=== PATIENT | male | born 1965 | race Caucasian/White ===

== ENCOUNTER 2022-11-16 19:24 | Inpatient (IN) | payer SELFPAY ==
[~2022-11-16] VITALS: Ht 182.9 cm; Wt 112.4 kg
[~2022-11-16 19:24] MED LIST: CIALIS5 MG PO; GLIPIZIDE XL10 MG PO; METFORMIN HCL500 MG PO; ZANTAC300 MG PO
--- NOTE | 2022-11-17 00:14 | EKG ---
[facility] [address] [facility] [place] [address] Signed Sinus tachycardia Incomplete right bundle branch block ST \T\ T wave abnormality, consider inferior ischemia Abnormal ECG No previous ECGs available Confirmed by NILSA COUGHLIN MD ([id number]) on 11/17/2022 12:13:56 AM Electronically Signed By: NILSA COUGHLIN MD 11/17/22 0014 PATIENT NAME: EVERETT CASTILLO Electrocardiogram DATE OF : 67 PHYSICIAN: NILSA COUGHLIN MD REPORT #: [id number] REPORT IS CONFIDENTIAL AND NOT TO BE RELEASED WITHOUT AUTHORIZATION
--- NOTE | 2022-11-17 03:07 | NUR ---
11/17/22 0307 Priti Molina 0302 PATIENT ARRIVES TO CCU AWAKE BUT CONFUSED. DOES NOT REDIRECT TO SITUATION. TRYING TO PULL NG OUT OF NOSE. RESP EVEN AND UNLABORED, ROOM AIR SATRS >91%.
--- NOTE | 2022-11-17 04:05 | NUR ---
REPORT FROM VENDING MACHINE OPERATOR ASHWINI AT THIS TIME. PT CONTINUES TO BE TACHYCARDIA AT 120-130/MIN, HTN, AWARE. PT MOANING AND YELLING FOR PAIN MEDCIATIONS, ASHWINI VENDING MACHINE OPERATOR HAS ADMINISTERED FENTANYL, SANDRA RN INTO ADMINISTER DILAUDID.
--- NOTE | 2022-11-17 05:26 | NUR ---
PT SLEEPING INTERMITTEN, OCCASSIONALLY WAKES AND MOANS/YELLS OUT THEN BACK TO SLEEP.
--- NOTE | 2022-11-17 05:40 | NUR ---
CALLED FOR CONTINUED TACHYCARDIA, 130-140/MIN. NEW ORDER FOR LOPRESSOR 2.5MG IV PRN Q6 HOURS.
--- NOTE | 2022-11-17 07:30 | NUR ---
PT HAD PULLED ON HIS NG TUBE, BUT NOT ALL THE WAY OUT. PUSHED BACK INTO PLACE AND CXR COMPLETED. PT C/O PAIN MEDICATED WITH 1MG DILUDID. ICE PACK PLACE
--- NOTE | 2022-11-17 08:00 | NUR ---
NOTIFIED STAFF THAT PATIENT PULLED ON HIS NG TUBE. RN AND THIS PETS AND PET SUPPLIES SALESPERSON IN ROOM TO ASSESS. TUBE REPOSITIONED AND TAPED TO NOSE. AT BEDSIDE. IMAGING IN FOR CHEST XRAY AT THIS TIME. STATES PATEINT IS "ITCHY" RN AWARE. VITALS AND I&OS CHARTED. LISA EMPTIED. CALL LIGHT IN EASY REACH
--- NOTE | 2022-11-17 08:14 | OR ---
[facility] [address] [place], [place] [address] Signed DATE OF OPERATION: 11/17/2022 SURGEON: Colin Be MD PREOPERATIVE DIAGNOSIS: Strangulated ventral hernia with small bowel obstruction. POSTOPERATIVE DIAGNOSIS: Strangulated ventral hernia with small bowel obstruction. PROCEDURES: 1. Laparotomy. 2. Moderate lysis of adhesions. 3. Small-bowel resection x1 with stapled [id number] anastomosis. 4. Primary ventral herniorrhaphy. In was 2.8 L crystalloid, out was 600 mL of urine over 2 hours and 45 minutes and 150 mL of blood. INDICATIONS: Everett is a 57-year-old gentleman, who in the past required a Zack's resection and reversal for diverticular disease. Apparently, his appendix and gallbladder are also missing. He had developed an epigastric incisional hernia. He and his surgeon felt that they were going to watch it conservatively. 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 He has to do a lot of heavy pushing, pulling and lifting. He said normally he does fine and he can push the hernia back inside. It did bother him early in the morning, but then he ate his dinner around 5:00 p.m. and it started to bother him rather significantly. He said the pain was unbelievable. He was diaphoretic and tachycardic. He came to the emergency room with his . In the emergency room, he was clearly in pain that could not be control with Dilaudid and IV Tylenol. He was nauseated as well. His white count was up a little at 13.7. His liver function tests and other labs were fine. Albumin is 4.7. Chest x-ray was fine. CT scan showed the ventral hernia with a small bowel obstruction with most likely a closed-loop obstruction. I have been asked to see him urgently in the emergency room. I came and met Everett and his , Emerita. I have known them for many years. In fact Everett has talked to me at his restaurant about his hernia. He is aware that we need to go directly to the operating room. We discussed the nature of the surgery along with the risks including, but not limited to bleeding, infection, scarring, change in contour of the skin, damage to bowel, anastomotic leak, incisional hernias and other unforeseen comorbidities. Emerita and Everett had expressed understanding and wished to proceed. Electronically Signed By: COLIN BE MD 11/17/22 0814 PATIENT NAME: EVERETT CASTILLO OPERATIVE REPORT DATE OF : 67 REPORT #: [id number] PHYSICIAN: COLIN BE MD PCP: STEPHAN BLEVINS MD REPORT IS CONFIDENTIAL AND NOT TO BE RELEASED WITHOUT AUTHORIZATION [address] [address] Signed PROCEDURE NOTE: Everett was taken in the operating room and placed in the supine position under general endotracheal tube anesthesia. He had been given cefepime and Flagyl. He was given Lovenox subcutaneously. SCDs were utilized. A Mckinnon catheter had been inserted with return of clear yellow urine. Even then the hernia was extremely tight and not able to be reduced. He was prepped and draped in the usual sterile fashion. We utilized a standard midline incision. We went down around the hernia. We opened the hernia sac and found that some of the bowel was already quite dusky and ischemic. It took a few minutes to free up the bowel from the hernia sac and back in the abdomen. We had to extend the incision cephalad and inferiorly. He had extensive interloop adhesions all around his abdomen clear down deep into his pelvis. All the bowel below the hernia was quite decompressed. We did free up some of those adhesions down past the bladder to help us bring the small bowel up and out into the operative field. We had to free up along the transverse colon as well. He had very little omentum left. We found that he had probably 20 cm of bowel into that hernia that was quite ischemic and concerning. We decided we go ahead and resect that length of bowel. Each end was divided with the help of the linear stapler back where we felt it was healthy and pink. We divided the mesentery between Pean clamps and 0 Vicryl ties. We then marked the specimen and it was passed off the field to our nurse. We brought the small bowel back together [id number] and closed the mesenteric rent with a running 3-0 Vicryl suture. The antimesenteric side of the bowel was brought together with multiple interrupted 3-0 silk sutures. We opened up the corners of the bowel and used our 80 mm linear stapler to make the anastomosis. The anastomosis was a good 4 cm in length. We closed the enterotomy with a running 3-0 Vicryl suture and then 3-0 silk Lembert sutures. We then used 3-0 silk Lembert sutures on the anterior staple line to invert it as well. We could palpate this anastomosis and it was quite patent. The bowel remained quite viable and actually was quite healthy and pinking up quite nicely for us as we went through the case. We went ahead and irrigated his abdomen with several L of warm antibiotic saline solution. We then excised the hernia sac and brought the midline fascia back together with interrupted #2 [id number] Prolene sutures. There was a little tension there in the middle of the hernia, but otherwise it came together fairly nicely. He had some redundant skin from the hernia, so that was excised and passed off the field. We then brought the skin back together with interrupted 3-0 subcuticular Monocryl sutures. The skin edges were then reapproximated with shoaib. Dry gauze and tape were then applied. We used an abdominal binder. He was awakened from his anesthesia, extubated in the OR, and taken to the ICU in stable condition. Colin Be MD Electronically Signed By: COLIN BE MD 11/17/22 0814 PATIENT NAME: EVERETT CASTILLO OPERATIVE REPORT DATE OF : 67 REPORT #: [id number] PHYSICIAN: COLIN BE MD PCP: STEPHAN BLEVINS MD REPORT IS CONFIDENTIAL AND NOT TO BE RELEASED WITHOUT AUTHORIZATION [facility] [address] [place] [id number] Signed ALB/MODL /[id number] cc: Colin Be MD [facility] Copies: COLIN BE MD ~ Electronically Signed By: COLIN BE MD 11/17/22 0814 PATIENT NAME: EVERETT CASTILLO OPERATIVE REPORT DATE OF : 67 REPORT #: [id number] PHYSICIAN: COLIN BE MD PCP: STEPHAN BLEVINS MD REPORT IS CONFIDENTIAL AND NOT TO BE RELEASED WITHOUT AUTHORIZATION
--- NOTE | 2022-11-17 08:14 | CONS ---
[facility] [address] [place], [place] [address] Signed DATE OF CONSULTATION: 11/16/2022 CHIEF COMPLAINT: Periumbilical pain and swelling. HISTORY OF PRESENT ILLNESS: Everett is a 57-year-old gentleman, who underwent an open sigmoid resection for diverticulitis with Dr. Francisco in the past. It looks like he has had a colostomy and then reversed. He has developed a periumbilical incisional hernia. In the past, he has been able to reduce it and it has been asymptomatic. He has been following along with Dr. Francisco. Unfortunately, tonight it became swollen after he ate around 5 o'clock this evening. It has gotten progressively worse. He came to the emergency room for evaluation. He is in severe pain despite Dilaudid and ketamine. It is not able to be reduced. His white count is elevated and he is tachycardic and diaphoretic. Chest x-ray was unremarkable. The CT scan showed the loop of small bowel in the ventral hernia dilated and fluid-filled most likely closed-loop. Consequently, I was asked to see him here in the emergency room. In the meantime, we did ask for some cefepime and Flagyl and Lovenox. PAST MEDICAL HISTORY: Diverticulitis, ventral hernia, and diabetes. PAST SURGICAL HISTORY: Includes appendectomy, cholecystectomy, right ankle surgery, Zack's procedure with reversal for diverticulitis with Dr. Francisco. SOCIAL HISTORY: He does not smoke or drink. He does use a little marijuana. He is . He goes to the [facility]. Emerita is his at . 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 FAMILY HISTORY: None. REVIEW OF SYSTEMS: He had 10 systems reviewed with the help of his and really no other acute issues. ALLERGIES: None. MEDICATIONS: Zantac, glipizide, metformin and Cialis. Electronically Signed By: COLIN BE MD 11/17/22 0814 PATIENT NAME: EVERETT CASTILLO CONSULTATION DATE OF : 67 REPORT #: [id number] PHYSICIAN: COLIN BE MD PCP: STEPHAN BLEVINS MD REPORT IS CONFIDENTIAL AND NOT TO BE RELEASED WITHOUT AUTHORIZATION [facility] [address] [place], [place] [address] Signed PHYSICAL EXAMINATION: VITAL SIGNS: His blood pressure is 179/94, his heart rate is 112, his respiratory rate is 23, his temperature is 97.6. He is 100% on room air. He is 6 feet tall, at 114 kg. GENERAL: Everett is a 57-year-old gentleman, lying supine in his ER bed. He is in significant pain and he is diaphoretic and tachycardic despite Dilaudid and ketamine. LUNGS: Clear to auscultation. ABDOMEN: Mildly distended. He has an incarcerated periumbilical hernia off to the right side at least the size of my hand. It is tender to palpation. It is quite firm. LABORATORY DATA: His white blood count is 13.7, hemoglobin 15, neutrophils 52. Electrolytes are unremarkable. The glucose is 223. Urinalysis showed ketones. Liver function tests are negative. Albumin is 4.7. EKG showed sinus tachycardia. RADIOGRAPHIC STUDIES: Chest x-ray is unremarkable. CT scan is reviewed and it shows the ventral hernia and I see the dilated loops of bowel in the hernia. ASSESSMENT AND PLAN: Everett is a 57-year-old gentleman, who has a chronic now incarcerated and symptomatic ventral hernia. It is most likely strangulated as described. I reviewed with Everett and his the nature of the hernia. We have discussed surgical repair including a laparotomy and possible small-bowel resection and repair of the hernia. There is risk to that surgery including, but not limited to bleeding, infection, scarring, change in contour of the skin, damage to bowel, anastomotic leak, recurrent incisional hernias and other unforeseen comorbidities. They have expressed understanding and would like to proceed. Colin Be MD [facility]/MODL /[id number] cc: [facility] Colin Be MD Electronically Signed By: COLIN BE MD 11/17/22 0814 PATIENT NAME: EVERETT CASTILLO CONSULTATION DATE OF : 67 REPORT #: [id number] PHYSICIAN: COLIN BE MD PCP: STEPHAN BLEVINS MD REPORT IS CONFIDENTIAL AND NOT TO BE RELEASED WITHOUT AUTHORIZATION [address] [address] Signed Copies: COLIN BE MD ~ Electronically Signed By: COLIN BE MD 11/17/22 0814 PATIENT NAME: TAMIKA CASTILLOIMANI Penny CONSULTATION DATE OF : 67 REPORT #: [id number] PHYSICIAN: COLIN BE MD PCP: STEPHAN BLEVINS MD REPORT IS CONFIDENTIAL AND NOT TO BE RELEASED WITHOUT AUTHORIZATION
--- NOTE | 2022-11-17 09:50 | NUR ---
PHONE CALL TO DR BE REGARDING PAIN, AND PULSE RATE. NEW ORDERS RECEIVED.
--- NOTE | 2022-11-17 10:05 | NUR ---
mother and brother in room at this time
--- NOTE | 2022-11-17 10:18 | NUR ---
PT CONTIOUES TO BE RESTLESS DILAUDIE 1MG IVP GIVEN FOR PAIN /10 AT THIS TIME. PT WENT HOME AND HIS MOTHER IS AT THE BEDSIDE AT THIS TIME. ICE TO ABD, NG CONTIOUES TO DRAIN BROWN IN COLOR DRAINAGE. SCD'S INPLACE.
--- NOTE | 2022-11-17 11:28 | NUR ---
ADVANCED NG 3 CM, PT TOLERATED WELL. FRESH ICE PACK TO ABD AT THIS TIME. PT GIVEN 25MG BENDRYAL IVP FOR ITCHING.
--- NOTE | 2022-11-17 11:56 | NUR ---
PT MOVES ABOUT IN THE BED WITHOUT ASSISTANCE. HIS MOTHER REMAINS AT HE BEDSIDE. HEART RATE IS DECREASING AT TIMES, STILL REMAINS IN 1-TEENS.
--- NOTE | 2022-11-17 12:57 | NUR ---
PT MEDICATED FOR PAIN AT THIS TIME. 1MG DILAUDID IVP GIVEN, PT AWAKE AND MOVES ABOUT IN THE BED. SCD'S INPLACE, NG INT-WALL SUCTION DRAINING GREEN TO BROWN IN COLOR DRAINAGE. ABD BINDER INPLACE WITH DRESSING DRY AT THIS TIME.
[2022-11-17] MEDS ORDERED: ZESTRIL5 MG PO (12:59)
[2022-11-17] MEDS ORDERED: VITAMIN D3125 MC2 PO (12:59)
[2022-11-17] MEDS ORDERED: CRESTOR20 MG PO (13:00)
[2022-11-17] MEDS ORDERED: ASPIRIN81 MG PO (13:00)
--- NOTE | 2022-11-17 13:55 | NUR ---
MEDICATED WITH 2.5MG LOPRESSOR AT THIS TIME HEART RATE WAS 120 AND HAS DECREASED TO 95 AT THIS TIME.
--- NOTE | 2022-11-17 14:21 | NUR ---
PT CONTIOUES TO REST AND AWAKEN IF STARDLED, BUT REMAINS IN BED AND IS NOT PULLING ON TUBES OR LINES AT THIS TIME. HIS MOTHER REMAINS AT THE BEDSIDE. ABD DRESSING IS DRY INTACK WITH ABOUT A QUARTER SIZE DRAINAGE NOTED AT THE TOP OF THE DRESSING. ABD BINDER REPLACED AMD OS INTACK.
--- NOTE | 2022-11-17 14:44 | NUR ---
PT UP TO THE BEDSIDE, PASSING BURPS AND THEN STOD UP AT THE BEDSIDE. LINES CHANGED AT THIS TIME, WASHED UP HIS BACK AND FRESH GROWN ON ALSO AT THIS TIME. PT BACK TO BED, SCD'S IN PLACE. CALL LIGHT WITH IN REACH, SIDE RAILS UP .
--- NOTE | 2022-11-17 14:45 | NUR ---
PATIENT STOOD AT SIDE OF BED WITH 2 PA. LINEN CHANGED. PATIENT WIPED DOWN. PATIENT PAINFUL, BUT TOLERATED WELL. MOTHER AT BEDSIDE. PATIENT BACK IN BED, BED EXTENDED AND PATIENT COMFORTABLE. CALL LIGHT IN EASY REACH
--- NOTE | 2022-11-17 15:02 | NUR ---
MEDICATED FOR PAIN AT HIS TIME, 1MG DILAUDID GIVEN. PT SLEEPS AND THE STARTLES AT TIMES.
--- NOTE | 2022-11-17 17:04 | NUR ---
DR BE INTO SEE PT AT THIS TIME, DR BE REMOVED DRESSING AND REPLACED ABD BINDER. INCISION IS WELL APPROXIMATED AT THIS TIME WITH JARETT. NO REDNESS NOTED AT THIS TIME.
--- NOTE | 2022-11-17 17:13 | NUR ---
PT MADE HOUSE CONVENECE AT THIS TIME PER SADDLE MAKER.
--- NOTE | 2022-11-17 17:22 | NUR ---
PT MEDICATED FOR PAIN WITH 1MG DILAUDID AT THIS TIME.
--- NOTE | 2022-11-17 17:43 | NUR ---
IV TYLENOL GIVEN AT THIS TIME TO HELP WITH PAIN CONTROL.
--- NOTE | 2022-11-17 18:36 | NUR ---
PT AT TIMES CAN BE RESTING COMFORABLE AND THEN WAKES UP AND YELLS OUT AT TIMES THAT HE HURTS. WHEN HE DOES THIS HIS SLEEP APENIC AND STARTLES WHEN HE WAKES UP.
--- NOTE | 2022-11-17 18:58 | NUR ---
PT MEDICATED WITH BENADRYL 25MG IVP GIVEN. PT IS AWAKE VISITING WITH FREINDS, AT TIMES HE WILL C/O PAIN AND YELL OUTLOUD. PT WANTS WATER AND REMINDED HIM AND THAT HE CAN HAVE THE SPONGES TO MOIST HIS MOUTH.
--- NOTE | 2022-11-17 19:01 | NUR ---
REPORT GIVEN TO STRATEGIC SOURCING SPECIALIST ALL QUESTIONS ANSWERED.
--- NOTE | 2022-11-17 19:23 | NUR ---
RN IN ROOM TO ROUND ON PT AFTER REPORT - PT RESTING IN BED ON BACK, SUDDEN JERKING MOVEMENT TO SIT UP IN BED RESULTS IN CRY OUT IN PAIN AND CUSSING AT TO GET SWABS. BEDSIDE TABLE NEXT TO PT WITH SWABS NOW. PT BACK TO SNORING QUICKLY. CALL LIGHT IN REACH, RESTING ON BEDSIDE COUCH.
--- NOTE | 2022-11-17 21:00 | NUR ---
RN IN ROOM TO ASSESS PT - PT RESTING IN BED AWAKE WITH BARMAID ROUNDING AT BEDSIDE. PT DROWSY, COMMUNICATES CLEARLY BUT FALLS ASLEEP QUICKLY WITH FREQUENT SUDDEN JOLTS AWAKE. PT PROVIDED PRN PAIN MEDICATION FOR 7/10 ABD PAIN. BP CUFF AND SCDS REMOVED PER PT REQUEST R/T ITCHING. AFEBRILE, TACHICARDIC, NORMOTENSIVE. PT PROVIDED MOUTH SWABS WITH FRESH COLD WATER. NPO EDUCATION PROVIDED R/T POST OP HEALING. NGT IN PLACE AT [facility], GREEN/BROWN DRAINAGE NOTED IN [place]. LISA CATH DRAINING QS YELLOW URINE. ABD BINDER IN PLACE. BOWEL TONES ABSENT/RARE, PT DENIES PASSING GAS. NC AT 2L IN PLACE TO SUPPLIMENT SP02 WHILE SLEEPING. AT BEDSIDE. CALL LIGHT AT SIDE.
--- NOTE | 2022-11-17 21:51 | NUR ---
PT NOTED TO BE USING PROFANITY LOUDLY IN ROOM DIRECTED AT - THIS RN IN ROOM TO ADDRESS CONCERN. PT INSTRUCTED THAT HE CAN BE HEARD FROM RN STATION USING F WORD AND THIS NEEDS TO CEASE. PT UPSET ABOUT BEING "THRISTY" AND IN "PAIN". THERAPEUTIC COMMUNICATION SURROUNDING THESE COMPLAINTS USED. CUTTING AND PRINTING MACHINE OPERATOR CALLED TO UPDATE ON SITUATION IN CASE OF FURTHER EXPLENATION.
--- NOTE | 2022-11-17 22:45 | NUR ---
pt to rn station to report need for pain medication - advised it is too soon for further narcotics or ofrimev. pt instructed to avoid sudden movements as demonstrated while rn in room. encouraged by rn to attend self care and that she is welcome to get sleep at home if she feels necessary, states "I cant, he will freak out". Surgeon note reviewed where explination for not using toradol explained.
--- NOTE | 2022-11-17 23:00 | NUR ---
RN IN ROOM TO ADMINISTER DILAUDID PRN PER PT REQUEST - PT HOLLERING OUT IN PAIN BUT SOUND ASLEEP QUICKLY. RR CURRENTLY 17, CLINICAL JUDGMENT TO LEAVE RESPIRATORY LEADS ON DESPITE NO TELE ORDER IN ORDER TO FURTHER WATCH RR RATE WITH AMOUNT OF NARCOTIC BEING ADMINISTERED. REMAINS AT BEDSIDE.
--- NOTE | 2022-11-17 23:47 | NUR ---
PTS AT RN STATION TO ASK ABOUT NICOTINE REPLACEMENT FOR PT - PT WISHES TO CHEW OWN NICOTINE GUM HE HAS IN BELONGINGS. STATES PT CHEWS 2MG NICOTINE GUM "ALL DAY LONG". TELEPHONE ORDER RECEIVED FROM DR. BE FOR PATCH AND PRN LOZENGE - GUM AVOIDED BY THIS RN DUE TO CHOKING HAZARD WITH PTS SOMULENT BEHAVIOR AND QUICK AWAKENING. ORDER ENTERED.
--- NOTE | 2022-11-18 01:06 | NUR ---
PT RESTING IN BED WITH EYES CLOSED, HR 120'S WHILE RESTING, RR 20. AT BEDSIDE. NO FURTHER REQUESTS FOR PAIN MEDICATION OR YELLING OUT FROM ROOM NOTED.
--- NOTE | 2022-11-18 01:20 | NUR ---
RN IN ROOM TO ANSWER CALL LIGHT - PT REQUESTS MOUTH SWABS AND PRN PAIN MEDICATION. BINDER REMOVED AND ICE APPLIED. INCISION C/D/I. PT DENIES FURTHER NEEDS FOR NICOTINE LOZENGE AT THIS TIME, STATES HE FEELS MUCH BETTER AFTER PATCH AND PREVIOUS LOZENGE - APPOLOGIZES FOR BEHAVIOR EARLIER. VS WNL.
--- NOTE | 2022-11-18 02:37 | NUR ---
PT TRANSFERED TO MS FLOOR ROOM 115 - REPORT GIVEN TO BECK CABRERA, ASSISTED WITH PT TRANSFER.
--- NOTE | 2022-11-18 02:45 | NUR ---
REPORT RECEIVED FROM CCU RN. PATIENT MOVED FROM WOOD TANK ERECTOR TO MS ROOM 115 PER ORDER. PATIENT AND PATIENTS ORIENTED AND EDUCATED ON MEDICAL FLOOR. NO NEEDS NOTED AT THIS TIME. CALL LIGHT IN REACH.
--- NOTE | 2022-11-18 03:00 | NUR ---
PATIENT REPORTS 8/10 PAIN, PRN PAIN MEDICATION GIVEN PER ORDER. PATIENT ALSO REPORTS ITCHING, PRN MEDS GIVEN PER ORDER. PATIENTS NG TO LWIS. PATIENT IS ON 2L VIA NC. PATIENTS IV INFUSING PER ORDER. PATIENT HAS SCDS IN USE. LISA IN PLACE AND PATENT. ON COUCH. PATIENT AND DENY ANY FURTHER NEEDS. CALL LIGHT IN REACH.
--- NOTE | 2022-11-18 04:50 | NUR ---
PATIENT REPOSITIONED IN BED. PATIENT RATES PAIN AT A 9/10, PRN PAIN MEDICATION GIVEN PER ORDER. PATIENTS IV INFUSING PER ORDER. NG TO LWIS. LISA IN PLACE. SCDS IN USES. ASLEEP ON THE COUCH. NO FURTHER NEEDS NOTED. CALL DEIRDRE DE LA CRUZ.
--- NOTE | 2022-11-18 06:02 | NUR ---
PATIENTS VITALS TAKEN AND RECORDED. LISA EMPTIED. INTAKE AND OUPUT RECORDED. PATIENT HAS NG TO LWIS. SCDS REMOVED PER PATIENT REQUEST. EDUCATED PATIENT ON IMPORTANCE OF SCDS. PATIENT REQUESTED A BREAK FROM THEM AT THIS TIME. PATIENTS IV INFUSING PER ORDER. PATIENT HAS ABD BINDER IN PLACE. PATIENT RATES PAIN AT AN 8/10, PRN PAIN MEDICATION GIVEN PER ORDER. PATIENTS PRESENT AT BEDSIDE. NO FURTHER NEEDS NOTED. CALL LIGHT IN REACH.
--- NOTE | 2022-11-18 06:47 | NUR ---
PATIENT IS RESTING IN BED. PATIENT NG TO LWIS. PATIENT HAS 2L VIA NC. PATIENTS NG SECURMENT DEVICE LIFTING OFF NOSE. SECUREMENT DEVICE REPLACED. PATIENT TOLERATED ACTIVITY WELL. PATIENTS IV INFUSING PER ORDER. PATIENT DENIES ANY FURTHER NEEDS. CALL LIGHT IN REACH.
--- NOTE | 2022-11-18 07:30 | NUR ---
RECEIVED REPORT FROM BECK CABRERA. PT RESTING IN BED WITH CALL LIGHT WITHIN REACH. RESPIRATIONS EVEN AND UNLABORED.
--- NOTE | 2022-11-18 08:50 | NUR ---
IN ROOM FOR MORNING MEDICATION AND ASSESSMENT. PT RESTING IN BED, CALL LIGHT WITHIN REACH, BEDRAIL UP FOR SAFETY. FAMILY AT BEDSIDE. PT COMPLAINT OF PAIN AND MEDICATION PROVIDED, SEE EMAR. PT DROWSY BUT RESPONSIVE TO NAME AND QUESTIONS.
--- NOTE | 2022-11-18 09:39 | NUR ---
PT RESTING IN BED, CALL LIGHT WITHIN REACH, PILLOW AGAINST ABD DUE TO PAIN WHEN COUGHING. PT NGT AT INTERM. SUCTION AND LISA IN PLACE. IV INFUSION STARTED. DENIES FURTHER NEEDS.
--- NOTE | 2022-11-18 11:26 | NUR ---
IN TO CHECK ON PT. MEDICATION PROVIDED FOR NAUSEA AND PAIN PER REQUEST. PT RESTING IN BED WATCHING TV. RESPIRATIONS EVEN AND UNLABORED. MOTHER AT BEDSIDE. CALL LIGHT AND PT BELONGINGS AT BEDSIDE.
--- NOTE | 2022-11-18 12:02 | NUR ---
PT RESTING IN BED, CALL LIGHT WITHIN REACH, BEDRAILS UP FOR SAFETY. RESPIRATIONS EVEN AND UNLABORED. DENIES NEEDS AT THIS TIME.
--- NOTE | 2022-11-18 12:33 | NUR ---
Visiting with mother. The plan of care is for patient to go home to his house with his .Has no mobility issues AND IS ABLE TO AFFORD FOOD AND MEDICATIONS. Able to use [employer]. States he will be getting insurance through work soon.
--- NOTE | 2022-11-18 14:37 | NUR ---
PATIENT GIVEN 1MG IV DILAUDID FOR 9/10 ABD PAIN. PATIENT GIVEN 5 UNITS OF INSULIN FOR BG OF 120. ENCOURAGED PATIENT TO GET UP TO CHAIR OR AMBULATE.
[2022-11-18] MEDS ORDERED: OZEMPIC1 MG/0.71 SUB-Q (14:47)
[2022-11-18] MEDS ORDERED: LANTUS100 UNITS/ SUB-Q (14:48)
--- NOTE | 2022-11-18 14:49 | NUR ---
medications reconciled with patient
--- NOTE | 2022-11-18 15:20 | NUR ---
PT ASSISTED OUT OF BED AND INTO CHAIR WITH PIVOT TRANSFER AND 2PA. PT COMPLAINT OF PAIN DURING MOVEMENT, EDUCATED ON IMPORTANCE OF BEING UP IN ROOM AND IN CHAIR. PT SITTING IN CHAIR WITH CALL LIGHT WITHIN REACH AND PT BELONGINGS ON BEDSIDE TABLE. RESPIRATIONS EVEN AND UNLABORED.
--- NOTE | 2022-11-18 17:40 | NUR ---
PT RESTING IN CHAIR IN ROOM WITH CALL LIGHT WITHIN REACH, BEDRAILS UP FOR SAFETY. MOTHER AT BEDSIDE. PT WATCHING TV AND FALLING ASLEEP WHEN RN NOT TALKING TO PT. DENIES NAUSEA AT THIS TIME.
--- NOTE | 2022-11-18 18:35 | NUR ---
PT ASSISTED BACK TO BED FROM CHAIR WITH 2PA/WALKER. PT COMPLAINT OF NAUSEA AND 10/10 PAIN IN ABD. PT COACHED THROUGH AMBULATION WITH PT STATING THIS IS THE WORST PAIN HE HAS EVER FELT AND DOES NOT WANT TO MOVE OR WALK. PT EDUCATED ON IMPORTANCE OF BEING UP IN CHAIR AND AMBULATION FOR HEALTH. PT PROVIDED WITH FRESH ICE, PAIN AND NAUSEA MEDICATION. NGT CANNISTER CHANGED. PT RESTING IN BED WITH CALL LIGHT WITHIN REACH AND AT BEDSIDE.
--- NOTE | 2022-11-18 21:00 | NUR ---
PATIENTS VITALS TAKEN AND RECORDED. PATIENTS LISA EMPTIED AND LISA CARE COMPLETED. PATIENTS NG CANISTER MARKED. INTAKE AND OUTPUT RECORDED. PATIENTS SCDS REMOVED FOR PATIENT COMFORT AT THIS TIME. PATIENT REMOVED FROM NC AND OXYMASK IN PLACE @ 4L FOR PATIENT COMFORT. PATIENTS PM MEDS GIVEN PER ORDER. PATIENT RATES PAIN AT AN 8/10, PRN PAIN MEDICATION GIVEN PER ORDER. PATIENT REPOSITIONED IN BED. PATIENTS ABD BINDER REMOVED AND PATIENTS ABD WIPED DOWN WITH COOL WASH RAG. PATIENT HAS MIDLINE, OPEN TO AIR, JARETT PRESENT, AND WELL APPROXIMATED. PATIENTS ABD BINDER PLACED BACK ON. NO FURTHER NEEDS NOTED. CALL LIGHT IN REACH.
--- NOTE | 2022-11-18 22:41 | NUR ---
PATIENT IS RESTING IN BED. PATIENT HAS NG TO [place]. SLOAN IN PLACE. PATIENT ON 4L VIA OXYMASK. PATIENT REPORTS 8/10 PAIN, PRN PAIN MEDICATION GIVEN PER ORDER. PATIENT REPORTS ITCHING, PRN MEDICATIION GIVNE PER ORDER. PATIENT DENIES ANY FURTHER NEEDS. CALL LIGHT IN REACH. ASLEEP ON THE COUCH.
--- NOTE | 2022-11-19 00:05 | NUR ---
PATIENT REPORTS 7/10 PAIN, PRN PAIN MEDICATION GIVEN PER ORDER. NO FURTHER NEEDS NOTED. CALL LIGHT IN REACH.
--- NOTE | 2022-11-19 02:45 | NUR ---
BS TAKEN AND RECORDED. SS ADMIN PER ORDER. PATIENT RATES PAIN AT A 7/10, PRN PAIN MEDICATION GIVEN PER ORDER. NG TO LWIS. IV INFUSING PER ORDER. LISA IN PLACE. NO FURHTER NEEDS NOTED. CALL LIGHT IN REACH.
--- NOTE | 2022-11-19 04:10 | NUR ---
PATIENT REPORTS 7/10 ABD PAIN, PRN PAIN MEDICATION GIVEN PER ORDER. PATIENT REPORTS "ITCHING", PRN MEDICATION GIVEN PER ORDER. NO FURTHER NEEDS NOTED. CALL LIGHT IN REACH.
--- NOTE | 2022-11-19 06:33 | NUR ---
PATIENT IS RESTING IN BED. PATIENT REPORTS 8/10 PAIN, PRN PAIN MEDICATION GIVEN PER ORDER. PATIENTS VITALS TAKEN AND RECORDED. LISA EMPTIED. NG CANISTER CHANGED. NG TO LWIS. PATIENTS IV INFUSING PER ORDER. PATIENTS LISA IS PATENT. PATIENT IS ON 4L VIA OXYMASK. PATIENT DENIES ANY FURHTER NEEDS. CALL LIGHT IN REACH. PRESENT AT THE BEDSIDE.
--- NOTE | 2022-11-19 07:25 | NUR ---
Report from Dominik Fall RN. Patient resting in bed. Opens eyes to voice. Denies needs at this time. at bedside, also denies needs. Patient informed of need to get up and moving more today. Call light in reach, bed rails up X2, NG on LIS, no output noted at this time.
--- NOTE | 2022-11-19 09:02 | NUR ---
NURSE AND I GOT PATIENT UP. PATIENT IS NOW SITTING UP IN HIS CHAIR. ALSO GOT HIM A CUP OF ICE. BED LINENS CHANGED.
--- NOTE | 2022-11-19 09:52 | NUR ---
Patient currently does does not have insurance, [facility] today about eligibility for the [place] [employer] [facility].
--- NOTE | 2022-11-19 11:11 | NUR ---
ASSIST FROM RECLINER TO BED. NG PUTTING OUT GREEN OUTPUT. PATIENT STATES PAIN IS 8/10. SEE EMAR. PAIN MEDS GIVEN PRIOR TO TRANSFER. PATIENT REQUESTS OXYMASK UPON RETURNING TO BED. MASK PROVIDED. DENIES OTHER NEEDS AT THIS TIME.
--- NOTE | 2022-11-19 15:09 | NUR ---
PATIENT IS SLEEPING. THE PLAN OF CARE REMAINS UNCHANGED. PATIENT WHATS TO GO HOME WITH HIS ON DISCHARGE.
--- NOTE | 2022-11-19 15:09 | NUR ---
I ASKED PATIENT IF HE WOULD LIKE TO TAKE A SHOWER TODAY AND HE SAID NO THAN I ASKED HOW ABOUT A BED BATH AND HE SAID SURE. SO I GOT THE SOAP AND WATER READY. GOT THE TOWELS OUT AND WASH CLOTHS GOT HIM A CLEAN GOWN AND SOCKS. THAN HIS GAVE HIM THE BED BATH.
--- NOTE | 2022-11-19 16:20 | NUR ---
SPOUSE STATES PATIENT GOT UP AND WALKED AROUND ROOM RECENTLY. PAIN 06/01 SEE EMAR
--- NOTE | 2022-11-19 17:23 | NUR ---
IV SITE TO RIGHT AC LEAKING. IV FLUSHES WITHOUT DIFFICULTY, NOT LEAKING WITH FLUSH, ADAPTER SITE WAS TIGHTENED AND DRESSING CHANGED. DENIES OTHER NEEDS AT THIS TIME. CALL LIGHT IN REACH. INSTRUCTED TO CALL IF IV SITE FEELS WET OR PAINFUL. VERBALIZES UNDERSTANDING.
--- NOTE | 2022-11-19 17:27 | NUR ---
PATIENT REMAINS WITH NG IN PLACE WITH GREEN OUTPUT TODAY, APPROXIMATELY 1000ML OUT. DID TAKE IN ICE CHIPS TODAY, FREQUENTLY. EDUCATED FAMILY ON IMPORTANCE OF STAFF ONLY REFILLING ICE CHIPS TO MONITOR INTAKE AND OUTPUT. PATIENT GIVEN IV DILAUDID MULTIPLE TIMES TODAY, DECREASES PAIN. WAS UP IN RECLINER FOR A COUPLE HOURS THIS AM. SAT UP FOR BED BATH, ASSISTED BY AND AMBULATED AROUND ROOM WITH SPOUSE THIS AFTERNOON. REMAINS WITHOUT FLATUS. BOWEL SOUNDS REMAIN HYPOACTIVE. MIDLINE INCISION IS APPROXIMATED, NO REDNESS OR DRAINAGE NOTED. ABDOMINAL BINDER IN PLACE. REMAINS WITH IV FLUIDS INFUSING. LISA CATHETER REMAINS IN PLACE.
--- NOTE | 2022-11-19 20:02 | NUR ---
RECEIVED REPORT FROM DAY SHIFT RN. PATIENT IS RESTING IN BED WITH EYES CLOSED, RR 16. CALL LIGHT IN REACH. AT BEDSIDE. NO NEEDS NOTED. CALL LIGHT IN REACH.
--- NOTE | 2022-11-19 21:20 | NUR ---
PATIENT CALLED AND REQUESTED PAIN MEDICATION WHEN ROOM WAS ENTERED PATIENT WAS SHAKING AND HAD INCREASED, RR @ 30. PATIENT STATED "I CANT BREATH". PATIENTS ABD BINDER UNDONE TO ALLOW PATIENT TO TAKE AND DEEPER BREATH. PATIENTS VITALS TAKEN AND RECORDED, AND ARE WNL. PATIENT REASSSURED. PATIENT GIVEN PRN ANXIETY MEDICATION. PATIENT RATES PAIN AT A 9/10, PRN PAIN MEDICATION GIVEN PER ORDER. PATIENTS PM MEDS GIVEN PER ORDER. PATIENTS ABD WIPED DOWN WITH COOL RAG. PATIENT PROVIDED A COOL RAG FOR THE BACK OF HIS NECK. PATIENT GIVEN PRN MEDICATION FOR ICHING. LISA EMPTIED AND LISA CARE COMPELETED. NG TO LWIS. INTAKE AND OUTPUT RECORDED. PATIENT REPOSITIONED IN BED. ABD BINDER REPOSITIONED AND PLACED BACK ON PATIENT. PATIENTS IV INFUSING IN RIGHT AC. LEFT AC FLUSHED AND SL PER ORDER. PATIENT ON 3L VIA OXYMASK. PATIENTS MID ABD INCISION IS WELL APROX AND JARETT PRESENT. PATIENT APPEARS CALM AND IS NOW FALLING ASLEEP. NO FURTHER NEEDS NOTED. CALL LIGHT IN REACH. REMAINS IN ROOM.
--- NOTE | 2022-11-19 22:10 | NUR ---
PATIENT IS RESTING IN BED WITH EYES CLOSED, RR 16. CALL LIGHT IN REACH. ASLEEP ON THE COUCH. NG TO LWIS. IV INFUSING PER ORDER.
--- NOTE | 2022-11-20 00:32 | NUR ---
PATIENT RESTING IN BED WITH EYES CLSOED, RR 15. CALL LIGHT IN REACH. ASLEEP ON THE COUCH.
--- NOTE | 2022-11-20 00:54 | NUR ---
PATIENT REPORTS 9/10 PAIN, PRN PAIN MEDICATION GIVEN PER ORDER. PATIENTS NG TO LWIS. PATIENT IS ON 3L VIA OXYMASK. LISA IN PLACE AND PATENT DRAINING CLEAR YELLOW URINE. PATIENTS ON COUCH. PATIENT STATED "JUST KNOCK ME OUT I CANT BREATH" PATIENT REPOSITIONED IN BED. ABD BINDER REPOSITIONED ON PATIENT. PATIENT AND EDUCATED ON RISK OF PNA. PATIENT AND VERBALIZE UNDERSTANDING. NO FURTHER NEEDS NOTED. CALL LIGHT IN REACH.
--- NOTE | 2022-11-20 03:00 | NUR ---
PATIENS VITALS TAKEN ADN RECORDED. SCHEDULED MEDS GIVEN PER ORDER. PATIENT RATES PAIN AT A 9/10, PRN PAIN MEDICATION GIVEN PER ORDER. NG TO LWIS. IV INFUSING PER ORDER. NO FURTHER NEEDS NOTED. CALL LIGHT IN REACH.
--- NOTE | 2022-11-20 03:51 | NUR ---
PATIENT ASSISTED TO THE RECLINER. PATIENT OFFERED TO WALK IN [place]. PATIENT ASSISTED TO AMBULATE IN THE [place]. PATIENT IS A 1PA W/FWW. PATIENT WAS ABLE TO AMBULATE FROM HIS ROOM TO CCU DOOR AND BACK TO BED. PATIENT IS RESTING IN BED. NG TO LWIS. IV INFUSING PER ORDER. PATIENT RATES PAIN AT A 6/10 AND DENIES THE NEED FOR PAIN MEDICATION AT THIS TIME. NO FURTHER NEEDS NOTED. CALL LIGHT IN REACH.
--- NOTE | 2022-11-20 04:30 | NUR ---
PATIENT IS RESTING IN BED WITH EYES CLSOED, RR 16. CALL LIGHT IN REACH.
--- NOTE | 2022-11-20 05:08 | NUR ---
PATIENT REPORTS 9/10 PAIN IN HER ABD, PRN PAIN MEDICATION GIVEN PER ORDER. INTAKE AND OUTPUT RECORDED. VITALS TAKEN AND RECORDED. PATIENTS NG TO LWIS. IV INFUSING PER ORDER. NO FURTHER NEEDS NOTED. CALL LIGHT IN REACH.
--- NOTE | 2022-11-20 06:13 | NUR ---
PATIENT IS RESTING IN BED WITH EYES CLOSED, RR 16. CALL LIGHT IN REACH.
--- NOTE | 2022-11-20 06:52 | NUR ---
PATIENT REPORTS 8/10 PAIN IN HIS ABD, PRN PAIN MEDICATION GIVEN PER ORDER. NO FURTHER NEEDS NOTED. CALL LIGHT IN REACH.
--- NOTE | 2022-11-20 07:15 | NUR ---
Report from Dominik Fall RN. Patient in bed, NG to suction. Mckinnon removed by Dominik Fall RN. Denies needs at this time. at bedside. Call light in reach, bed rails up X2.
--- NOTE | 2022-11-20 07:35 | NUR ---
in pt room. bs taken. rn notified. no further needs. call light within reach
--- NOTE | 2022-11-20 10:14 | NUR ---
IV SITE TO RAC LEAKING PER PATIENT, ASSESSED BY THIS NURSE. IV DRESSING ALMOST TOTALLY OFF WITH CATHETER HANGING OUT AND BENT. IV SITE DC'D. NEW IV STARTED. TOLERATED WELL. PAIN 7/10 AT THIS TIME.
--- NOTE | 2022-11-20 13:13 | NUR ---
PATIENT STATES HE HAS PASSED FLATUS 2 TIMES. REQUESTING FOOD, CONTINUES WITH NG IN PLACE ON LIS. CONTINUES TO HAVE GREEN OUTPUT. HICCUPS FREQUENTLY.
--- NOTE | 2022-11-20 13:32 | NUR ---
PT ALERT, ORIENTED AND SUPPORTED BY HIS MOTHER QI. NGT IN USE, PT USING O2 MASK. FRIENDLY, FEELS WELL CARED FOR. HAD GOOD VISIT, PT THANKED ME FOR STOPPING BY. REQUESTED PRAYER, LEFT G.POST. WILL FOLLOW
--- NOTE | 2022-11-20 19:10 | NUR ---
REPORT RECEIVED FROM RICK TYLER. PT SITTING UP IN BED WITH RR EVEN AND UNLABORED. AT BEDSIDE. PT REPORTS NO NEEDS AT THIS TIME. CALL LIGHT IN REACH.
--- NOTE | 2022-11-20 20:00 | NUR ---
IN TO ANSWER CALL LIGHT. PT REQUESTING TO GO FOR A WALK. PTs IV UNPLUGGED FROM WALL AND NG TUBE CLAMPED. SBA WITH FWW. ARLENE CLARKE WALKING PT AROUND [place]. NO OTHER NEEDS FROM THIS RN AT THIS TIME.
--- NOTE | 2022-11-20 20:15 | NUR ---
ASSISTED PT WITH AMBULATION OF MS HALLWAY, ONE AND A HALF LAPS, SBA FWW, BACK TO BED, NG SUCTION RESUMED PER UNCHANGED SETTING
--- NOTE | 2022-11-20 21:18 | NUR ---
IN TO ADMINISTER MEDICATIONS, SEE MAR. PT REPORTING PAIN 8/10 IN ABD. PRN PAIN MEDICATION ADMINISTERED, SEE MAR. ASSESSMENT COMPLETE. LUNG SOUNDS CLEAR. BOWEL TONES HYPOACTIVE IN ALL QUADRANTS. ABD "SLIGHTLY" TENDER IN LLQ WITH PALPATION. NG TO LIWS WITH 100ML OUTPUT. IV INFUSING WNL. ABD INCISION OPEN TO AIR. NO DRAINAGE NOTED. NO REDNESS OR SWELLING NOTED. ABD BINDER IN PLACE. PT REQUESTING MORE ICE CHIPS, ICE CHIPS PROVIDED. NO OTHER NEEDS AT THIS TIME. CALL LIGHT IN REACH.
--- NOTE | 2022-11-20 22:28 | NUR ---
IN TO ROUND ON PT. PT REPORTING PAIN 8/10 IN ABD. PRN PAIN MEDICATION ADMINISTERED, SEE MAR. PT REQUESTING BENADRYL FOR ITCHING, PRN BENADRYL ADMINISTERED, SEE MAR. PT REPORTS NO OTHER NEEDS AT THIS TIME. CALL LIGHT IN REACH.
--- NOTE | 2022-11-20 23:54 | NUR ---
IN TO ANSWER CALL LIGHT. PT IV ALARMING, RESOLVED. NEW BAG OF LR STARTED. PT REQUESTING PAIN MEDICATION. PRN PAIN MEDICATION ADMINISTERED, SEE MAR. URINAL EMPTIED. PT REPORTS NO OTHER NEEDS AT THIS TIME. CALL LIGHT IN REACH.
--- NOTE | 2022-11-21 02:49 | NUR ---
IN TO ADMINISTER MEDICATIONS, SEE MAR. PT AWAKE UPON ENTERING ROOM. PT REPORTING PAIN 8/10 IN ABD. PRN TYLENOL ADMINISTERED, SEE MAR. PRN MEDICATION FOR AGGITATION/ANXIETY ADMINISTERED, SEE MAR. ASSESSMENT COMPLETE. LUNG SOUNDS CLEAR. BOWEL TONES HYPOACTIVE. MIDLINE INCISION OPEN TO AIR NO DRAINAGE OR REDNESS NOTED. ABD BINDER IN PLACE. BATTERIES FOR FAN PROVIDED PER PT REQUEST. I&Os AND VITALS COMPLETE. PT REPORTS NO OTHER NEEDS AT THIS TIME. CALL LIGHT IN REACH.
--- NOTE | 2022-11-21 05:01 | NUR ---
IN TO ANSWER CALL LIGHT. PT REPORTING PAIN 8/10 IN ABD. PRN PAIN MEDICATION ADMINISTERED, SEE MAR. URINAL EMPTIED. PT REPORTS NO OTHER NEEDS AT THIS TIME. CALL LIGHT IN REACH. IN ROOM.
--- NOTE | 2022-11-21 05:27 | NUR ---
pt awake in bed. vitals and is and os complete. pt urinal at bedside. pt declined a warm blanket. ice chips req. ok'd w rn. ice chips provided. no further needs. call light within reach
--- NOTE | 2022-11-21 07:44 | NUR ---
PATIENT IN BED RESTING, EYES CLOSED, RESPIRATIONS EVEN AND NON LABORED. NO NOTABLE DISTRESS. PERSONAL SUPPLIES AND CALL LIGHT WITHIN REACH.
--- NOTE | 2022-11-21 07:53 | NUR ---
PT IN BED RESTING. BS TAKEN. RN NOTIFIED. NO FURTHER NEEDS. CALL LIGHT WITHIN REACH
--- NOTE | 2022-11-21 09:05 | NUR ---
INTO SEE PATIENT, PATIENT AWAKE LAYING IN BED. NG IN PLACE. PATIENT MOTHER AT BEDSIDE. PER PATIENT NO DISCHARGE CONCERNS AT THIS TIME. WILL CONTINUE TO CHECK IN WITH PATIENT.
--- NOTE | 2022-11-21 10:23 | PATH ---
[facility] [address], [place] [address] Signed SPECIMEN(S): A SEGMENT OF SMALL BOWEL SPECIMEN SOURCE: A. SEGMENT OF SMALL BOWEL CLINICAL HISTORY: Incarcerated incisional hernia. FINAL PATHOLOGIC DIAGNOSIS: Segment of small bowel, segmental resection: - Segment of small bowel with mucosal edema and areas of mucosal ischemic necrosis. - Serosa with fibrosis and acute and chronic inflammation. - The distal resection margin is viable. - The proximal resection margin is positive for areas of ischemic change. [id number] MICROSCOPIC EXAMINATION: Histologic sections of all submitted blocks are examined by light microscopy. These findings, together with the gross examination, support the pathologic diagnosis. GROSS DESCRIPTION: The specimen, labeled and designated "[place], segment of small bowel, suture at distal end of specimen," is received in formalin and consists of a segment of previously open small bowel (29 cm in length and ranging in circumference from 3.5 to 3.0 cm) with attached fatty tissue extending up to 3.0 cm. One bowel margin is marked with a stitch and the distal end of the distal bowel margin is inked black and the proximal margin is inked blue. The serosa is ramos-pink, hemorrhagic and roughened with areas of adhesions. The mucosa is red-brown and edematous. No masses or lesions are grossly identified. Senior Cyber Intelligence Analyst sections are submitted. Cassette Summary: (A1-A2) Margins, shaved, en face (A3-A4) Bowel wall with adhesions AC (under the direct supervision of a pathologist) The Gross Description was prepared using a voice recognition system. The report was reviewed for accuracy; however, sound-alike word errors, addition and/or deletions may occur. If there is any PATIENT NAME: EVERETT CASTILLO PATHOLOGY DATE OF : 67 REPORT #: [id number] PHYSICIAN: MILTON CORTEZ PCP: STEPHAN BLEVINS MD REPORT IS CONFIDENTIAL AND NOT TO BE RELEASED WITHOUT AUTHORIZATION [facility] [address], [place] [address] Signed question about this report, please contact Client Services. PERFORMING LABORATORY: The technical component was performed by [facility], [address] [place] [address] (CLIA# [id number]). The professional interpretation was performed by [facility], [facility], [address] [place] [id number] (CLIA#: [id number]). Diagnostician: All Arriaza MD Pathologist Electronically Signed 11/21/2022 Copies: ~ PATIENT NAME: EVERETT CASTILLO PATHOLOGY DATE OF : 67 REPORT #: [id number] PHYSICIAN: MILTON CORTEZ PCP: STEPHAN BLEVINS MD REPORT IS CONFIDENTIAL AND NOT TO BE RELEASED WITHOUT AUTHORIZATION
--- NOTE | 2022-11-21 11:00 | NUR ---
NG REMOVED PER PROVIDER ORDER, CATH TIP INTACT. PATIENT TOLERATED WELL.
--- NOTE | 2022-11-21 12:04 | NUR ---
PT ALERT, ORIENTED AND HAS RM DARKENED WATCHING TV. PTS' MOTHER QI IN RM WITH PT. NGT DC'D, PT MUCH HAPPIER. GAVE BLESSING AND WILL FOLLOW
--- NOTE | 2022-11-21 12:09 | NUR ---
ADMIN DILAUDID 1MG IV FOR REPORTS OF 5/10 ABDOMINAL PAIN.
--- NOTE | 2022-11-21 12:33 | NUR ---
PATIENT WALKED TWICE THIS SHIFT. PATIENT TOLERATING CLEAR LIQUIDS WELL AT THIS TIME, ENCOURAGED PT TO GO SLOW WITH HIS PO CONSUMPTION. PATIENT DENIES NEEDS AT THIS TIME. PT'S MOTHER AT BEDSIDE VISITING.
--- NOTE | 2022-11-21 13:43 | NUR ---
ADMIN DILAUDID 1MG IV FOR REPORTS OF 5/10 ABD PAIN.
--- NOTE | 2022-11-21 13:51 | NUR ---
OFFIRMEV 1000MG IV ADMIN FOR REPORTS OF 7/10 ABDOMINAL PAIN.
--- NOTE | 2022-11-21 15:15 | NUR ---
PT WAS SHORT OF BREATH , TALKED TO DR BE STARTED IS
--- NOTE | 2022-11-21 17:16 | NUR ---
PATIENT RESTING IN BED, NO DISTRESS. PATIENT DENIES NAUSEA AT THIS TIME. PATIENT REPORTS PASSING FLATUS THROUGHOUT THIS SHIFT. IV FLUIDS CONTINUE INFUSING PER PROVIDER ORDER. NO CURRENT NEEDS AT THIS TIME, PERSONAL SUPPLIES AND CALL LIGHT WITHIN REACH.
--- NOTE | 2022-11-21 18:22 | NUR ---
ADMIN DILAUDID 1MG IV FOR REPORTS OF 5/10 ABD PAIN.
--- NOTE | 2022-11-21 20:20 | NUR ---
IN TO ADMINISTER MEDICATIONS, SEE MAR. ASSESSMENT COMPLETE. LUNGS CLEAR IN ALL LOBES. BOWEL TONES ACTIVE IN ALL QUADRANTS. SLIGHTLY TENDER WITH PALPATION. PT REPORTING PAIN 8/10 IN ABD. PRN PAIN MEDICATION ADMINISTERED, SEE MAR. VITALS COMPLETE. PT REQUESTING WATER, WATER PROVIDED. NO OTHER NEEDS AT THIS TIME. CALL LIGHT IN REACH.
--- NOTE | 2022-11-21 21:35 | NUR ---
pt reports pain to abd, rates 8/10. prn administered. see emar. pt denies further needs at this time. call light in reach.
--- NOTE | 2022-11-21 23:05 | NUR ---
IN TO ANSWER CALL LIGHT. PT REPORTING PAIN 7/10 IN ABD. PRN PAIN MEDICATION ADMINISTERED, SEE MAR. PT REPORTS FEELING NAUSEOUS, PRN NAUSEA MEDICATION ADMINISTERED, SEE MAR. NO OTHER NEEDS AT THIS TIME. CALL LIGHT IN REACH.
--- NOTE | 2022-11-21 23:40 | NUR ---
REPORT REVEIVED FROM RICK CRUZ. PT RESTING IN BED WATCHING TELEVISION. PT REPORTS NO NEEDS AT THIS TIME. CALL LIGHT IN REACH.
--- NOTE | 2022-11-22 00:36 | NUR ---
IN TO ANSWER CALL LIGHT. PT REQUESTING PAIN MEDICATION. PT REPORTING PAIN 06/01. PRN PAIN MEDICATION ADMINISTERED, SEE MAR. NO OTHER NEEDS AT THIS TIME. CALL LIGHT IN REACH.
--- NOTE | 2022-11-22 02:05 | NUR ---
IN ANSWER CALL LIGHT. PT REPORTING PAIN 7/10 IN ABD. PRN PAIN MEDICATION ADMINISTERED, SEE MAR. SCHEDULED MEDICATIONS ADMINISTERED, SEE MAR. VITALS AND I&Os COMPLETE. IV INFUSING WNL. ASSESSMENT COMPLETE. LUNG SOUNDS CLEAR. BOWEL TONES ACTIVE. NO BM NOTED AT THIS TIME. PT IS PASSING GAS. ABD TENDER WITH PALPATION. PT HAS HICCUPS AT THIS TIME. PT REQUESTING ICE CHIPS. WATER REMOVED AND ICE CHIPS PROVIDED. NO OTHER NEEDS AT THIS TIME. CALL LIGHT IN REACH.
--- NOTE | 2022-11-22 05:09 | NUR ---
IN TO ADMINISTER PRN PAIN MEDICATION. PT REPORTING PAIN 8/10 IN ABD. PRN PAIN MEDICATION ADMINISTERED, SEE MAR. PRN ANXIETY MEDIATION ADMINISTERED, SEE MAR, PT IS FEELING ANXIOUS. VITALS AND I&Os COMPLETE. PT REPORTS NO OTHER NEEDS AT THIS TIME. CALL LIGHT IN REACH. AT BEDSIDE.
--- NOTE | 2022-11-22 05:18 | NUR ---
IN TO ROUND ON PT AND REASSESS PAIN. PT STATES "I AM FEELING GOOD, THE ANXIETY IS GONE." PT REPORTING PAIN 5/10 AT THIS TIME. PT REPORTS NO OTHER NEEDS AT THIS TIME. CALL LIGHT IN REACH.
--- NOTE | 2022-11-22 07:23 | NUR ---
Patient resting in bed, eyes closed, respirations even and non labored. Patient has no notable distress. Call light within reach of patient.
--- NOTE | 2022-11-22 08:20 | NUR ---
PATIENT IN BED THIS AM. INDP IN ROOM, CALL LIGHT WITHIN REACH.
--- NOTE | 2022-11-22 10:53 | NUR ---
ADMIN DILAUDID 1MG IV FOR REPORTS OF 6/10 ABDOMINAL PAIN.
--- NOTE | 2022-11-22 11:53 | NUR ---
ADMIN ZOFRAN 8MG IV AND DILAUDID 1MG IV FOR NAUSEA AND ABDOMINAL PAIN.
--- NOTE | 2022-11-22 13:01 | NUR ---
ADMIN INAPSINE 0.625MG IV FOR NAUSEA.
--- NOTE | 2022-11-22 13:51 | NUR ---
ATIVAN 2MG IV ADMIN FOR ANXIETY.
--- NOTE | 2022-11-22 14:18 | NUR ---
RN IN ROOM FOR CALL LIGHT PT REPORTS DIZZINESS AND UP TO CHAIR WITH AT BEDSIDE.
--- NOTE | 2022-11-22 14:50 | NUR ---
PT RESTING IN CHAIR AND UP TO BATHROOM. VOID NOTED. PT REPORTS NAUSEA IS "A LITTLE BETTER." PT BACK IN CHAIR, PT ABLE TO REST WITH EYES CLOSED. CALL LIGHT WITH REACH.
--- NOTE | 2022-11-22 16:11 | NUR ---
Assisted PT to bathroom, then back into bed. noticed increased confusion in pt. nurse notifed. Call light is within reach, pt has no other needs at this time.
--- NOTE | 2022-11-22 16:26 | NUR ---
PT REPORTS PT IS SEEING THINGS AND FORGETTING WHERE HE IS. PT ORIENTED X3. PT REPORTS HE IS FEELING NAUSEA AND SITS ON EDGE OF BED, NO EMESIS NOTED. PT FALLS ASLEEP WHILE TALKING TO RN.
--- NOTE | 2022-11-22 18:09 | NUR ---
PT WALKED [place]OR[place] UNIT. PT MOTHER WORRIED ABOUT PT, REPORTS HE YELLED AT HER. PT ORIETNED TO ROOM AND PLACE AND SELF. PT RETURNED TO BED, PT ATE SMALL AMOUNT OF YOGET. PT REPORT TOLERABLE PAIN 2/10 AND PT WANTS TO SLEEP. PLAN OF CARE DISCUSSED WITH MOTHER AND PT, NO OTHER CONCERNS AT THIS TIME.
--- NOTE | 2022-11-22 18:26 | NUR ---
ASSISTED PT TO BATHROOM THEN BACK INTO BED. VITALS AND I/O HAVE BEEN DOCUMENTED. CALL LIGHT IS WITHIN REACH FAMILY IN ROOM. PT HAS NO OTHER NEEDS AT THIS TIME.
--- NOTE | 2022-11-22 19:30 | NUR ---
REPORT RECEIVED FROM RICK ARIAS. PT LAYING IN BED COMPLAINING OF CHEST PAIN. RICK ARIAS CALLED MD. THIS RN TOOK VITALS. RICK RUSSELL ADMINISTERED PRN MEDICATION. RICK ARIAS IN TO GET EKG. NO OTHER NEEDS FROM THIS RN AT THIS TIME. PT IN BED WITH EYES CLOSED. RR EVEN AND UNLABORED.
--- NOTE | 2022-11-22 19:40 | NUR ---
MD CALLED AND NEW ORDER RECEIVED. PT REPORTS CHEST PAIN AND 10/10 PAIN IN ABD. MD AWARE, PAIN MEDICATION GIVEN.
--- NOTE | 2022-11-22 20:01 | NUR ---
EKG DONE, PT RESTING IN BED AND FAMILY REASSURED. CALL LIGHT WITHIN REACH.
--- NOTE | 2022-11-22 20:57 | NUR ---
IN TO ADMINISTER MEDICATIONS, SEE MAR. YVONNE, RN IN ADMINISTERING PRN MEDICATION, SEE MAR. ASSESSMENT COMPLETE. LUNG SOUNDS CLEAR. BOWEL TONES HYPOACTIVE. ABD TENDER AND FIRM WITH PALPATION. VITALS COMPLETE. I&Os COMPLETE. PT REPORTS NO OTHER NEEDS AT THIS TIME. CALL LIGHT IN REACH.
--- NOTE | 2022-11-22 22:00 | NUR ---
IN BED ALARM ALARMING. PT UP TO CHAIR IN ROOM. IV IN LEFT AC LEAKING. THIS RN ATTEMPTED TO CHANGE DRESSING, BUT SITE CONTINUED TO LEAK. IV REMOVED. DRESSING CHANGED ON LEFT FOREARM IV. IV INFUSING WNL. PT BACK IN BED. BED ALARM ON. NO OTHER NEEDS AT THIS TIME. CALL LIGHT IN REACH.
--- NOTE | 2022-11-22 22:53 | NUR ---
PT'S TO RN STATION, STATES THAT SHE IS LEAVING. STATES THAT SHE CANNOT HELP PT AND THAT HE IS YELLING AT HER. HEALTH EDUCATION COORDINATOR TO ROOM. PT'S REPORTS THAT HE HAS SPIT INTO WATER CUP. EMPTIED. PT DISORIENTED TO PLACE AND TIME. REORIENTATION ATTEMPTED. PT RATES PAIN 7/10 TO ABD AND CHEST. REPORTS HEART BURN. PRN ADMINISTERED. RN PILOT CAN ROUTER TO [facility], STATES TAHT PT'S MOM WONDERING IF SHE SHOULD COME IN TO SIT WITH PT. PT'S AGREES. PT RESTING IN BED WITH EYES CLOSED. DENIES FURTHER NEEDS AT THIS TIME. BED ALARM ACTIVE. CALL LIGHT IN REACH.
--- NOTE | 2022-11-22 23:28 | NUR ---
IN BED ALARM ALARMING. PT UP IN ROOM WALKING AROUND. UNPLUGGED IV POLE FROM WALL TO PREVENT IV FROM BEING DISLODGED. PT STATES "WHERE IS OLESYA" TOLD PT OLESYA WENT HOME AND WILL BE BACK IN THE MORNING. PT SITTING ON COUCH. PT GETTING CLOTHES OUT OF PTs BAG. WHEN ASKED WHAT THE PT IS DOING PT STATES "I AM GETTING DRESSED" ORIENTED PT TO THE TIME. PT STATES "I WANT TO GO HOME" EDUCATED PT THAT PT IS IN THE HOSPITAL AND IT IS ALMOST MIDNIGHT. PT USES CELLULAR DEVICE AND TALKS TO SOMEONE ON THE PHONE. AFTER PHONE CALL PT REQUESTING TO USE URINAL AND STANDS UP AND WALKS TOWARD RESTROOM. URINAL HANDED TO PT. PT USES URINAL AND THEN EMPTIES IT INTO THE SINK IN THE RESTROOM. PT BACK IN BED. RESTING WITH EYES CLOSED. RR EVEN AND UNLABORED. IV INFUSING WNL. BED ALARM ON.
--- NOTE | 2022-11-23 00:17 | NUR ---
IN TO TALK WITH PT FAMILY MEMBER CALLED ASKING TO HAVE PT CALL MOTHER. INFORMED PT THAT MOTHER WOULD LIKE HIM TO CALL. PT CALLED ON HIS PERSONAL CELL PHONE. PT REQUESTING MEDICATION FOR PAIN. NO OTHER NEEDS AT THIS TIME. CALL LIGHT IN REACH. BED ALARM ON.
--- NOTE | 2022-11-23 00:30 | NUR ---
IN TO ADMINISTER PRN PAIN MEDICATION. RICK RUSSELL BED ALARM ALARMING. PT HAS EMESIS. PT REPORTING PAIN 8/10 IN ABD. PRN PAIN MEDICATION ADMINISTERED, SEE JAN. RICK RUSSELL CHANGED PTs LINENS. NO OTHER NEEDS AT THIS TIME. CALL LIGHT IN REACH. BED ALARM ON.
--- NOTE | 2022-11-23 00:45 | NUR ---
THIS RN CALLED DR. BE TO NOTIFY OF PTs UNCONTROLLED PAIN AND EMESIS. NEW ORDERS RECEIVED VERIFIED WITH REPEAT BACK.
--- NOTE | 2022-11-23 00:57 | NUR ---
IN BED ALARM ALARMING. PT STANDING UP IN ROOM AND STATES "I GOT SOMETHING ON MY NECK." WHEN ASKED IF PT HAD EMESIS PT STATES "YES." PT UPDATED ON PLAN. PT BACK IN BED. BED ALARM ON. NO OTHER NEEDS AT THIS TIME. CALL LIGHT IN REACH.
--- NOTE | 2022-11-23 01:30 | NUR ---
PRN PAIN MEDICATION ADMINISTERED. IMAGING IN TO TAKE PT DOWN FOR IMAGING. NO OTHER NEEDS FROM THIS RN AT THIS TIME.
--- NOTE | 2022-11-23 01:50 | NUR ---
PHONE CALL RECEIVED FORM DR. BE. NEW ORDERS RECEIVED. VERIFIED WITH READ BACK.
--- NOTE | 2022-11-23 02:25 | NUR ---
IN TO PLACE NG TUBE. RICK RUSSELL IN ROOM TO ASSIST. PT TOLERATED WELL. 2900ML OUTPUT NOTED. PT ON LIWS IV IN LEFT FOREARM DC'd IV WAS LEAKING. NEW IV PLACED BY RICK RUSSELL IN RIGHT FOREARM. VITALS AND I&Os COMPLETE. PT RESTING IN BED WITH EYES CLOSED RR EVEN AND UNLABORED. NO OTHER NEEDS IDENTIFIED AT THIS TIME. BED ALARM ON AND CALL LIGHT IN REACH.
--- NOTE | 2022-11-23 03:55 | NUR ---
PT REPORTING PAIN 7/10 IN ABD. PRN PAIN MEDICATION ADMINISTERED, SEE MAR. ASSESSMENT COMPLETE. LUNG SOUNDS CLEAR. BOWEL TONES ACTIVE. MODERATE ABD DISTENTION. FIRM WITH PALPATION. PT REPORTS NON-TENDER WITH PALPATION. IV INFUSING WNL. NG TO LIWS. PT RESTING IN BED. WITH EYES CLOSED. RR EVEN AND UNLABORED. NO NEEDS IDENTIFIED AT THIS TIME. CALL LIGHT IN REACH. BED ALARM ON.
--- NOTE | 2022-11-23 05:54 | NUR ---
VITALS AND I&Os COMPLETE. PT RESTING IN BED WITH EYES CLOSED. RR EVEN AND UNLABORED. IV INFUSING WNL. NG TO LIWS. NO NEEDS IDENTIFIED AT THIS TIME. CALL LIGHT IN REACH. BED ALARM ON.
--- NOTE | 2022-11-23 07:12 | NUR ---
REPORT RECEIVED FROM RICK RAE. DR BE IN ROOM ROUNDING ON PT. PT DROWSY DURING DR ROUNDS, EASILY AROUSABLE. PT DENIES NEEDS AT THIS TIME. CALL LIGHT IN REACH, BED ALARM ON.
--- NOTE | 2022-11-23 08:40 | NUR ---
MORNING ASSESSMENT COMPLETE. PT LYING IN BED, DROWSY YET EASILY AROUSABLE. PT DENIES PAIN AT THIS TIME. ABD SOFT AND NON TENDER, ACTIVE BOWEL TONES THROUGHOUT. NG TO LIWS DRAINING YELLOW FLUID. IV FLUIDS RUNNING. MIDLINE INCISION WELL APPROXIMATED WITH JARETT, CDI. AT BEDSIDE. PT DENIES FURTHER NEEDS AT THIS TIME. CALL LIGHT IN REACH.
--- NOTE | 2022-11-23 10:12 | NUR ---
pt c/o nausea and 7/10 pain. given prn zofran and toradol, see emar. pt denies further needs at this time. family at bedside. call light in reach and bed alarm on.
--- NOTE | 2022-11-23 12:12 | NUR ---
PT RESTING IN BED WITH EYES CLOSED, RESPIRATIONS EVEN AND UNLABORED. AT BEDSIDE. CALL LIGHT IN REACH AND BED ALARM ON.
--- NOTE | 2022-11-23 13:26 | NUR ---
PT UP TO RESTROOM AND BACK TO BED, TOLERATED WELL. LARGE DARK BROWN LIQUID BM. LINENS CHANGED. PT ORIENTED TO SELF, PLACE, EVENTS. DISORIENTED TO DATE. PT C/O 6-06/01 LOWER ABD PAIN, REQUESTED AND GIVEN PRN MEDICATION, SEE EMAR. PT DENIES FURTHER NEEDS AT THIS TIME. CALL LIGHT IN REACH. FAMILY AT BEDSIDE.
--- NOTE | 2022-11-23 16:20 | NUR ---
SPOKE WITH DR BE REGARDING SBFT RESULTS. PT PLACED BACK TO LIWS PER DR BE.
--- NOTE | 2022-11-23 17:57 | NUR ---
PT RESTING IN BED WITH EYES CLOSED, RESPIRATIONS EVEN AND UNLABORED. AWAKENS EASILY. DENIES NEEDS AT THIS TIME. NG TUBE REMAINS IN PLACE, M INIMAL OUTPUT SINCE PLACED BACK TO SUCTION. CALL LIGHT IN REACH.
--- NOTE | 2022-11-23 19:55 | NUR ---
REPORT RECEIVED FROM RICK ALVA. pt RESTING IN BED WITH EYES CLOSED, NGT TO LOW INT SUCTION. NO DISTRESS NOTED, AT BEDSIDE. IVF INFUSING.
--- NOTE | 2022-11-23 21:16 | NUR ---
pt SLEEPING, AWAKENS TO VOICE. IN ROOM. SBA TO RESTROOM FOR VOID AND LIQUID BM, DARK BROWN. BACK IN BED. ASSESSMENT COMPLETE. NGT FLUSHED WITH 50 MLS. AIR LINE ON NGT FLUSHED WITH AIR. NGT TO SUCTION, LOW INT SUCTION IN PLACE. IMMEDIATE RETURN OF LARGE AMT OF LIQUID BROWN CONTENTS. pt DENIES PAIN. PRN OFIRMEV ADMINISTERED WNL FOR PAIN CONTROL. CALL LIGHT IN REACH. LIGHTS OFF IN ROOM. WARM BLANKET PROVIDED.
--- NOTE | 2022-11-23 23:30 | NUR ---
pt BACK IN BED FROM RESTROOM, DARK BROWN LIQUID STOOL. NETWORK DEVELOPMENT COORDINATOR SINTA IN ROOM. IVF INFUSING WNL. NGT TO LOW INT SUCTION. pt COMPLAINS OF SOME MID ABDOMINAL PAIN WITH MOVEMENT, DENIES ANY ADDITIONAL NEEDS. CALL LIGHT IN REACH.
--- NOTE | 2022-11-24 02:30 | NUR ---
IN pt ROOM FOR SCHEDULED MEDICATIONS. VSS. ASSESSMENT COMPLETE. NGT TO LOW INT SUCTION. pt RATES PAIN 5/10 IN ABDOMEN. PRN TORADOL ADMINISTERED. NGT CANNISTER REPLACED. NO ADDITIONAL REQUESTS. CALL LIGHT IN REACH.
--- NOTE | 2022-11-24 06:35 | NUR ---
pt AWAKE RESTING IN BED. VSS. pt RATES PAIN 3/10 AT THIS TIME, "NOT BAD". REQUESTING A POPSICLE. REMAINS NPO. IVF INFUSING WNL. SBA TO RESTROOM FOR BM. VERBVALIZES UNDERSTANDING TO USE CALL LIGHT.
--- NOTE | 2022-11-24 07:03 | NUR ---
STOOL DARK BROWN/BLACK IN COLOR. HEMOCULT TEST ADMINISTERED BY NURSING STAFF. NEGATIVE PER RN JOAQUINA. pt BACK IN BED. IVF INFUSING WNL.
--- NOTE | 2022-11-24 08:19 | NUR ---
REPORT RECIEVED. PT LYING ON RIGHT SIDE. AT BEDSIDE. NG TO LIWS. FLUIDS INFUSING ORDERED. CALL LIGHT IN REACH.
--- NOTE | 2022-11-24 11:00 | NUR ---
ROUNDED ON PT. TAPE FOR NG TUBE OFF NOSE AND NG PULLED ABOUT A FOOT OUT. DR BE NOTIFIED. ORDERS TO PULL NG TUBE. NG TUBE PULLED AND TOLRIDOL ADMISNTERED FOR PAIN. PLAN FOR WALK BEFORE LUNCH.
--- NOTE | 2022-11-24 11:51 | NUR ---
ORDER RECEIVED. TO INCREASE DIET TO 1000ML CLEAR RESTRICTIONS. DISCUSSED PLAN WITH PT AND MOTHER AT BEDSIDE. PROVIDED PT 1 JELLO AND 1 CUP OF ICE CHIPS. PT AGREEABLE TO PLAN.
--- NOTE | 2022-11-24 11:58 | NUR ---
WENT IN TO CHECK ON PATIENT. HE GOT HIS NG TUBE OUT. SO I ASKED HIM IF HE WOULD LIKE TO WASH HIS FACE AND BRUSH HIS TEETH. PATIENT IS BRUSHING NOW.
--- NOTE | 2022-11-24 12:34 | NUR ---
FLUID RATE DECREASED PER ORDER. PT AMBULATED 1 LAP WITH OVEN DAUBER.
--- NOTE | 2022-11-24 12:37 | NUR ---
PATIENT AND I DID ONE LAP AROUND MED SURG. PATIENT IS SITTING UP IN HIS CHAIR EATING HIS POPCICLE. AND VISITING WITH HIS MOM.
--- NOTE | 2022-11-24 14:00 | NUR ---
DID PATIENT'S BLOOD SUGAR CHECK. ALSO PATIENT WAS BACK IN BED. IN ROOM.
--- NOTE | 2022-11-24 15:31 | NUR ---
IN FOR PT ASSESSEMNT. PT LYING ON RIGHT SIDE. FAMILY AT BEDSIDE. DENIES PAIN. DENIES NAUSEA. CALL LIGHT IN REACH.
--- NOTE | 2022-11-24 16:10 | NUR ---
both nares swabbed without complication.
--- NOTE | 2022-11-24 17:19 | NUR ---
4 UNITS INSULIN ADMINSTERED. PT PROVIDED WITH 100ML JELLO AND 100 ML APPLE JUIC FOR DINNER PER REQUEST.
--- NOTE | 2022-11-24 18:03 | NUR ---
VITAMINE BAG COMPLETED PT CHANGED OVER TO IF FLUIDS PER ORDER.
--- NOTE | 2022-11-24 18:29 | EKG ---
[facility] [address] [facility] [place] [address] Signed Normal sinus rhythm Inferior-posterior infarct , age undetermined Abnormal ECG When compared with ECG of 16-NOV-2022 19:41, Incomplete right bundle branch block is no longer present Inferior-posterior infarct is now present Confirmed by KAILA MCGEE MD ([id number]) on 11/24/2022 6:29:03 PM Electronically Signed By: KAILA MCGEE MD 11/24/22 1829 PATIENT NAME: TAMIKA CASTILLOIMANI [facility] Electrocardiogram DATE OF : 67 PHYSICIAN: KAILA MCGEE MD REPORT #: [id number] REPORT IS CONFIDENTIAL AND NOT TO BE RELEASED WITHOUT AUTHORIZATION
--- NOTE | 2022-11-24 18:29 | NUR ---
PT REPORTING 6/10 PAIN. NO PAIN MEDICAITONS AVAILIBLE. PT DECLINED ICE PACK. OFFERED TO DISCUSS WITH DR AND PT ALSO DECLINED. NO FURHTER NEEDS.
--- NOTE | 2022-11-24 20:00 | NUR ---
PT ASSESSMENT COMPLETE. PT RATES PAIN /10 TO ABD. PRN ADMINISTERED. PT DENIES NAUSEA OR SOB. MIDLINE INCISION WITH STABLES. C/D/I. BT'S ACTIVE. ABD TENDER TO PALPATION. MILD DISTENSION NOTED. IV FLUSHED WITH 10 ML NS. WNL. PATENT. IVF INFUSING ORDERED. PT UP TO BATHROOM AND BACK TO BED. CONTINUES TO HAVE MULTIPLE LOOSE BMS. THERMOSTAT INCREASED. WARM BLANKET PROVIDED. PT AND DENY FURTHER NEEDS AT THIS TIME. CALL LIGHT IN REACH.
--- NOTE | 2022-11-24 21:33 | NUR ---
PT HAS SOILED THE BED. PT ASSISTED TO BR. LINENS CHANGED. PT DECLINES ASSITANCE IN THE BR. PT BACK TO BED. IV FLUIDS INFUSING. NO OTHER NEEDS. CALL LIGHT IN REACH.
--- NOTE | 2022-11-24 23:52 | NUR ---
PT RESTING IN BED LYING ON R SIDE. WAKES EASILY WHEN SHOVEL LOADER OPERATOR ENTERS THE ROOM. PT REPORTS PAIN / TO ABD. PRN ADMINISTERED. PT REPORTS CONTINUED INABILITY TO SLEEP. UP TO BATHROOM AND BACK TO BED WITH SBA. TOLERATED WELL. PT DENIES FURTHER NEEDS AT THIS TIME. CALL LIGHT IN REACH.
--- NOTE | 2022-11-25 01:15 | NUR ---
PT UTILIZES CALL LIGHT STATES THAT HE HAS TO GO TO THE BATHROOM "RIGHT NOW". PUTTY MIXER TO ROOM, PT ALREADY IN THE BATHROOM WITH IV PUMP. SBA BACK TO BED. WARM BLANKET PROVIDED. PT DENIES FURTHER NEEDS. CALL LIGHT IN REACH.
--- NOTE | 2022-11-25 02:30 | NUR ---
PT UTLIZES CALL LIGHT TO REPORT IV ALARMING. PT ASSESSMENT COMPLETE. PT RESTING IN BED. RATES PAIN /10. DENIES NAUSEA OR SOB. MIDLINE INCISION WITH JARETT, [place]. C/D/I. ABD MILDLY DISTENED. BT'S ACTIVE. ABD TENDER TO PALPATION. IV FLUSHED WITH 10 ML NS. WNL. SCHEDULED MEDICATION ADMINISTERED. PT RESTING WITH EYES CLOSED AND MOUTH OPEN WHILE MESS ATTENDANT AT BEDSIDE. WAKES BRIEFLY. AGREES THAT HE HAS MAYBE BEEN ABLE TO SLEEP A BIT. DENIES FURTHER NEEDS AT THIS TIME. CALL LIGHT IN REACH.
--- NOTE | 2022-11-25 06:35 | NUR ---
PT ROUNDING. PT STATES THAT HE FEELS MUCH IMPROVED THIS MORNING. DENIES NEED FOR PRN PAIN MEDICATION. CALL LIGHT IN REACH.
--- NOTE | 2022-11-25 07:00 | NUR ---
Spoke with Dr. Stanford at 0700 this morning on my arrival to work. He is planning on pt to possibly dc home tomorrow. 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 Please see his progress note for today.
--- NOTE | 2022-11-25 07:05 | NUR ---
BEDSIDE REPORT FROM VIRAJ, PT AMB TO BR TO VOID/BM. IV PLUGGED BACK IN AFTER AMB. CALL LIGHT IN REACH.
--- NOTE | 2022-11-25 07:29 | NUR ---
pt utillizes call light, requests to use bathroom. pt up to br and back to bed with sba. requests prn pain medciation after returning from the bathroom. prn administered. pt denies further needs. call light inr each.
--- NOTE | 2022-11-25 09:30 | NUR ---
call to dr pickens to ask for iv meds switch to po. left message.
--- NOTE | 2022-11-25 12:46 | NUR ---
pt given nails icee - with meal toll full liquids well. insulin given. pt set up for shower when ready and discussed plan of care - family in room, enc amb and is demonstrated well. mid line ins. shoaib wnl. iv fusing bannana bag well.
--- NOTE | 2022-11-25 15:11 | NUR ---
pt trying to sleep, reports pain 4/10 abd. toradol given.
--- NOTE | 2022-11-25 17:00 | NUR ---
PAIN MEDICATION GIVEN PER EMAR, PT DINNER AT BEDSIDE. PT RATES PAIN 6/10. PT RESTING IN BED. MOTHER IN ROOM. ALL QUESTIONS ANSWERED.
--- NOTE | 2022-11-25 18:05 | NUR ---
pt up in , reports feeling yucky, no nausea and not emisis - reports burping, amb in room and iv wnl.
--- NOTE | 2022-11-25 19:25 | NUR ---
BEDSIDE HANDOFF REPORT RECEIVED FROM SENIOR UI UX DESIGNER RN. PT SITTING IN CHAIR. PT DENIES NEEDS AT THIS TIME.
--- NOTE | 2022-11-25 20:45 | NUR ---
PT RESTING IN BED. PT RATING PAIN TOLERABLE 5/10, WOULD LIKE PAIN MEDICATION WHEN AVAIALBLE. PT ON ROOM AIR, LUNG SOUNDS CLEAR, DENIES SOB. PT DENIES NAUSEA, PASSING A LOT OF FLATUS, BOWEL TONES ACTIVE, CONTINUES TO HAVE SMALL FREQUENT BMS. MIDLINE INCISION WITH JARETT IN PLACE, WITHOUT REDNESS OR DRAINAGE, EDGES WELL APPROXIMATED. CMS INTACT, WITHOUT EDEMA. LR INFUSING AT 50 ML/HR. VSS, IV METOPROLOL ADMINISTERED PER ORDER. DISCUSSED PLAN OF CARE FOR THE EVENING, PT DENIES OTHER NEEDS AT THIS TIME.
--- NOTE | 2022-11-26 01:55 | NUR ---
PT RESTING IN BED. IV METOPROLOL GIVEN PER ORDER. PT RATING PAIN 5/10, GIVEN 15MG IV TORADOL. PT DENIES OTHER NEEDS AT THIS TIME.
--- NOTE | 2022-11-26 08:09 | DS ---
[facility] [address] [place], [place] [address] Signed ADMISSION DATE: 11/16/2022 DISCHARGE DATE: 11/26/2022 FINAL DIAGNOSIS: Incarcerated ventral epigastric incisional hernia with small bowel obstruction. PROCEDURES: 1. Laparotomy. 2. Moderate lysis of adhesions. 3. Small bowel resection x1 with stapled [id number]-fg-[id number] anastomosis. 4. Primary ventral herniorrhaphy. 5. Multiple abdominal x-rays and CT scans. HISTORY OF PRESENT ILLNESS: Everett is a 57-year-old gentleman, who about 11 years ago had perforated diverticulitis. He required a Zack's resection with Dr. Lauri brown in [place], [place]. Three months later, he had it reversed. At some point, he has had his appendix removed and his gallbladder removed as well. He had developed an epigastric incisional hernia. He was watching that conservatively. It had been bothering him intermittently. On the day , it bothered him in the morning and by 5:00 p.m. it was quite severe and so he came to the emergency room. In the emergency room, he had a large incarcerated very tender epigastric incisional hernia. White count was up and the CT scan showed what looked like a closed-loop obstruction inside the hernia. Of course, the Dilaudid was unable to control his pain. I had come directly to the emergency room to see him. HOSPITAL COURSE: Everett was taken directly from the emergency room into the operating room that night for his laparotomy. He went through a moderate lysis of adhesions. He did indeed had a closed-loop obstruction with ischemic small-bowel. It was resected about 20 cm in length. A wfiq-xs-vkie stapled anastomosis was performed. We had closed his fairly large 8-10 cm epigastric hernia primarily with interrupted [id number]-[id number] sutures. He went through a somewhat tortuous postoperative course as his small bowel function started to return. We put him through several x-rays and eventually a small-bowel follow-through. We had to take away the Dilaudid due the ileus and some of his hallucinations. He settled down and his GI function had returned and he is now markedly improved. He is tolerating a full liquid diet with multiple bowel movements and lots of flatus. His abdomen is now soft, flat, and nontender. His incision is healing well without any local signs or symptoms of infection. He has mobilized enormous amount of fluid and is performing his activities of daily living. At this point, he and his feel comfortable going home. Electronically Signed By: COLIN BE MD 11/26/22 0809 PATIENT NAME: EVERETT CASTILLO DISCHARGE SUMMARY DATE OF : 67 REPORT #: [id number] PHYSICIAN: COLIN BE MD PCP: STEPHAN BLEVINS MD REPORT IS CONFIDENTIAL AND NOT TO BE RELEASED WITHOUT AUTHORIZATION [address] [address] Signed DISCHARGE PLANS AND MEDICATIONS: Everett is going to be discharged home without any new prescriptions. He can use Tylenol as needed for pain. He can resume all his chronic medications. I have asked him to follow a soft diet at least for a week or so until he is more confident in his p.o. intake. I have asked him not to do any heavy pushing, pulling, or lifting over about 25 pounds. I have encouraged him not to do this the rest of his life. 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 He is going to need help buying the groceries and loading the car and unloading the car. He can certainly unload the packages. He is aware that if he develops a recurrent incisional hernia, it is going to require significant surgery. We are going to take all his shoaib out prior to discharge. We are going to have him back in the office in a week or so for followup. He and his have expressed understanding and agreed with the above plan. Colin Be MD [facility] /[id number] cc: [facility] Colin Be MD Copies: COLIN BE MD ~ Electronically Signed By: COLIN BE MD 11/26/22 0809 PATIENT NAME: EVERETT CASTILLO DISCHARGE SUMMARY DATE OF : 67 REPORT #: [id number] PHYSICIAN: COLIN BE MD PCP: STEPHAN BLEVINS MD REPORT IS CONFIDENTIAL AND NOT TO BE RELEASED WITHOUT AUTHORIZATION
--- NOTE | 2022-11-26 08:51 | NUR ---
NO CHANGES IN DISCHARGE PLAN AT THIS TIME. PATIENT TO DISCHARGE TODAY.
--- NOTE | 2022-11-26 09:24 | NUR ---
REMOVED JARETT MIDLINE WNL - STERI STRIPS PLACED - EDUCATED PT AND ON WHAT TO WATCH FOR. DC INST REVIEWED - IV REMOVED WNL.
== END 2022-11-26 09:35 | disposition home or self-care (01) | DRG 330 ==
LOC: ED 19:24 → CCU 23:06 → MS 11-18 02:30
PROVIDERS: ADMIT Colon & Rectal Surgery; ATTEND Colon & Rectal Surgery
PROC: 0WQF0ZZ Repair Abdominal Wall, Open Approach (ICD-10-PCS; 2022-11-17)
PROC: 0DB80ZZ Excision of Small Intestine, Open Approach (ICD-10-PCS; principal; 2022-11-17 23:30)
DX: K43.6 Other and unspecified ventral hernia with obstruction, without gangrene (principal); K56.7 Ileus, unspecified; K91.89 Other postprocedural complications and disorders of digestive system; E11.9 Type 2 diabetes mellitus without complications; Z20.822 Contact with and (suspected) exposure to COVID-19; E87.6 Hypokalemia; E83.42 Hypomagnesemia; E83.39 Other disorders of phosphorus metabolism; Z87.19 Personal history of other diseases of the digestive system; Z87.891 Personal history of nicotine dependence; Z90.49 Acquired absence of other specified parts of digestive tract; Z98.890 Other specified postprocedural states; Z79.84 Long term (current) use of oral hypoglycemic drugs; Z79.899 Other long term (current) drug therapy
CPT/HCPCS: 36415; 71045; 74019; 74177; 74250; 80048; 80053; 81001; 83690; 83735; 84100; 84484; 85025; 85379; 87502; 93005; 93010; 94760; A9270; C9113; C9803; J0131; J0692; J1100; J1170; J1200; J1650; J1790; J1815; J1885; J2060; J2250; J2370; J2405; J2550; J2704; J3010; J3411; J3420; J3475; J3480; J7030; J7060; J7121; Q9967; U0003

== ENCOUNTER 2022-12-13 22:34 | Emergency (ER) | payer SELFPAY ==
[~2022-12-13] VITALS: Ht 182.9 cm; Wt 100.0 kg
[~2022-12-13 22:34] MED LIST changes: +ASPIRIN81 MG PO; +CRESTOR20 MG PO; +LANTUS100 UNITS/ SUB-Q; +OZEMPIC1 MG/0.71 SUB-Q; +VITAMIN D3125 MC2 PO; +ZESTRIL5 MG PO
--- OUTSIDE RECORDS SUMMARY | 2022-12-13 22:45 | XMS ---
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 Gt has no Care Guidelines for this patient. [facility] MO[facility] NOTE: Visits indicate total known visits. ED/C VISIT TRACKING (12 MO.) [facility] COMPLAINT: - SOB FOR 1 WEEK AND WORSENING 11/16/2022 19:26 [facility] [place] TYPE: Emergency COMPLAINT: - ABD PAIN INPATIENT VISIT TRACKING (12 MO.) 11/17/2022 03:27 [facility] [place] TYPE: Medical Surgical COMPLAINT: - INCARCERATED HERNIA DIAGNOSES: - Other postprocedural complications and disorders of digestive system - Other disorders of phosphorus metabolism - Contact with and (suspected) exposure to COVID-19 - Personal history of other diseases of the digestive system - Other ad terminal makeup operator (current) drug therapy - Type 2 diabetes mellitus without complications - Acquired absence of other specified parts of digestive tract - Ileus, unspecified - Ileus, unspecified - Other specified postprocedural states - Acquired absence of other specified parts of digestive tract - longterm (current) use of oral hypoglycemic drugs - Other postprocedural complications and disorders of digestive system - Other disorders of phosphorus metabolism - Hypokalemia - Other specified postprocedural states - Personal history of other diseases of the digestive system - Hypomagnesemia - longterm (current) use of oral hypoglycemic drugs - Other and unspecified ventral hernia with obstruction, without gangrene - Other intermediate (current) drug therapy - Contact with and (suspected) exposure to COVID-19 - Hypokalemia - Hypomagnesemia - Personal history of nicotine dependence - Type 2 diabetes mellitus without complications - Personal history of nicotine dependence [email or web address]
[2022-12-14] MEDS ORDERED: VENTOLIN HFA18 GM INH (00:18)
--- NOTE | 2022-12-14 20:41 | EKG ---
[facility] [address] [place] [address] Signed Normal sinus rhythm Normal ECG When compared with ECG of 22-NOV-2022 19:51, Criteria for Inferior-posterior infarct are no longer present Confirmed by Jarad Swain MD () on 12/14/2022 8:41:31 PM Electronically Signed By: JARAD SWAIN MD 12/14/222040 PATIENT NAME: EVERETT CASTILLO Electrocardiogram DATE OF : 67 PHYSICIAN: JARAD SWAIN MD REPORT #: [id number] REPORT IS CONFIDENTIAL AND NOT TO BE RELEASED WITHOUT AUTHORIZATION
== END 2022-12-14 00:45 | disposition home or self-care (01) ==
LOC: ED 22:34
DX: R06.02 Shortness of breath (principal); Z20.822 Contact with and (suspected) exposure to COVID-19; Z87.891 Personal history of nicotine dependence; Z79.899 Other long term (current) drug therapy; Z79.84 Long term (current) use of oral hypoglycemic drugs; Z79.82 Long term (current) use of aspirin; Z79.4 Long term (current) use of insulin
CPT/HCPCS: 36415; 71045; 80053; 83880; 84484; 85025; 85379; 87502; 93005; 93010; 99285-25; C9803; U0003